=== PATIENT | male | born 1960 | race Caucasian/White ===

== ENCOUNTER 2022-10-26 13:15 | Emergency (ER) | payer OTHER ==
[~2022-10-26] VITALS: Ht 177.8 cm; Wt 77.1 kg
== END 2022-10-26 16:20 | disposition designated cancer center or children's hospital (05) ==
LOC: ER 13:15
DX: I21.3 ST elevation (STEMI) myocardial infarction of unspecified site (principal); Z20.828 Contact with and (suspected) exposure to other viral communicable diseases

== ENCOUNTER → 2023-11-11 | Emergency (ER) | payer OTHER | END | disposition left against medical advice (07) | LOC: ER 16:36 | DX: Z53.21 Procedure and treatment not carried out due to patient leaving prior to being seen by health care provider (principal) ==

== ENCOUNTER 2025-05-11 12:15 | Outpatient (CLI) | payer OTHER | END 2025-05-11 12:25 | disposition home or self-care (01) | LOC: TOM 12:15 | PROVIDERS: ATTEND Otolaryngology | DX: J30.9 Allergic rhinitis, unspecified (principal); D11.0 Benign neoplasm of parotid gland ==